=== PATIENT | male | born 1940 | race Caucasian/White ===

== ENCOUNTER 2025-07-30 09:33 | Outpatient (REF) | payer MEDICARE, SELFPAY ==
[2025-07-30 07:51] LABS: MANUAL DIFF FLAG NO
[2025-07-30 08:03] LABS: Hematocrit 31.2 % (42.0-52.0); Hemoglobin 10.6 g/dl (14.0-18.0); Imm Gran Abs Auto 0.04 X10*3/uL (0.00-0.03); Imm Gran Pct Auto 0.6 % (0.0-0.4); Lymphocytes Absolute Auto 2.1 X10*3/uL (1.2-4.9); Mean Corpuscular HGB Conc 34.0 g/dl (31.0-36.0); Mean Corpuscular Hemoglobin 31.5 pg (27.0-33.0); Mean Corpuscular Volume 92.9 fL (80.0-98.0); NRBC Abs Auto 0.000 X10*3/uL (0.0-0.012); NRBC Pct Auto 0.0 /100WBC (0.0-0.2); Platelet Count 274 X10*3/uL (160-400); Red Blood Count 3.36 X10*6/uL (4.60-5.80); White Blood Count 7.1 X10*3/uL (4.8-10.8)
[2025-07-30 08:59] LABS: Anion Gap 18 (12-20); Blood Urea Nitrogen 45 mg/dL (9-16); Calcium 9.1 mg/dL (8.4-10.2); Carbon Dioxide 26 mmol/L (22-29); Chloride 93 mmol/L (96-108); Estimated Glomerular Filt Rate 9; Potassium 4.5 mmol/L (3.3-5.1); Sodium 132 mmol/L (135-145)
== END 2025-07-30 09:34 | disposition home or self-care (01) ==
LOC: HO.MMNH3L 09:33
PROVIDERS: Visit Provider Physician Assistant Medical
DX: N18.6 End stage renal disease (principal)
CPT/HCPCS: 36415; 80048; 85025

== ENCOUNTER 2025-08-06 06:36 | Outpatient (REF) | payer MEDICARE, SELFPAY ==
[2025-08-06 06:36] LABS: MANUAL DIFF FLAG NO
--- OUTSIDE RECORDS SUMMARY | 2025-08-06 06:37 | XMS_ITS | Encounter Summary ---
Author Organization [facility], Address [address] [place] [address] Phone Care Team Providers Care Heel Seater Name Role Phone Evangelist Alicia Primary Care Provider [phone] Reason for Visit * Reason Comments Med Refill Encounter Details Date Type Department Care Team (Late st Contact Info) Description 09/25/2023 Refill [facility] [address] [place] [phone] Asa Cowart, [address] [place] [address] Social History Tobacco Use Types Packs/Day Years Used Date Smoking Tobacco: Former Cigarettes 0 Q uit: 08/16/1970 Smokeless Tobacco: Never Alcohol Use Standard Drinks/Week Comments Yes 1 (1 standard drink = 0.6 oz pure alcohol) Alcoholic Drinks/day: Occasional social drink Sex and Gender Information Value Date Recorded Sex Assigned at Not on file Legal Sex Male 4:36 PM EST Gender Identity Not on file Sexual Orientation Not on file documented as of this encounter Plan of Treatment Upcoming Encounters Date Type Department Care Team (Late st Contact Info) Description 11/08/2025 9:00 AM EDT Scheduled Only [facility], - [facility] [address] [place] [phone] documented as of this encounter Visit Diagnoses Not on filedocumented in this encounter Care Teams Heel Seater Relationship Specialty Start Date End Date Evangelist Alicia [address] [place] [address] PCP - General Internal Medicine 07/19/19 documented as of this encounter
--- OUTSIDE RECORDS SUMMARY | 2025-08-06 06:37 | XMS_ITS | Encounter Summary ---
Author Organization [facility], Address [address] [place] [address] Phone Care Team Providers Care Mark Up Designer Name Role Phone Evangelist Alicia Primary Care Provider [phone] Reason for Visit * Reason Comments Med Refill Encounter Details Date Type Department Care Team (Late st Contact Info) Description 11/18/2023 Refill [facility] [address] [place] [phone] Asa Cowart, [address] [place] [address] Social History Tobacco Use Types [...] Scheduled Only [facility], - Vascular Access Center [address] [place] [phone] documented as of this encounter Procedures Procedure Name Priority Date/Time Associated Diagnosis Comments HD KINETICS Routine 11/18/2023 POST CHEMISTRY Routine 11/18/2023 HEMATOLOGY Routine 11/18/2023 CHEMISTRY Routine 11/18/2023 [facility] RESULTS Routine 11/18/2023 documented in this encounter Results * [facility] Results (11/18/2023) nPCR_HD 0.60 [facility] eKt/V (Tattersall) 1.21 [facility] WSTDKT/V 2.3 [facility] PCR 45.73 [facility] eKt/V Gotch 1.26 [facility] spKt/V (Daugirdas II) 1.39 [facility] eNPCR 0.56 [facility] eKdrt/V 1.26 [facility] spKt/V Gotch 1.45 [facility] 11/18/2023 11/18/2023 [facility] Ordering Provider LAB BLOOD ORDERABLES Final Result [facility] Contact Performing lab Unknown, [place] * HD KINETICS (11/18/2023) Pathologist [facility] % Urea Reduction 70 65 - 80 % [facility] 11/18/2023 11/19/2023 10: 03 AM EDT Narrative Resulting Agency Comment Specimen source: Plasma Asa Cowart DO LAB BLOOD ORDERABLES Final Resu lt APS [facility] See order comments or contact performing lab Unknown, [place] * POST CHEMISTRY (11/18/2023) BUN Post Dialysis 9 6 - 19 mg/dL [facility] 11/18/2023 11/19/2023 10: 03 AM EDT Narrative [facility] - 11/19/2023 Unless otherwise specified, test(s) performed at: [facility], [address] [place], [place] [id number] FOOD AND NUTRITION TEACHER: Wes Rogers M.D. For any questions, please call customer service at FREQUENCY:OTHER Resulting Agency Comment Specimen source: Plasma [facility] BLOOD ORDERABLES Final Resu Performing Organization Address [facility] de Phone Number [facility] See order comments or contact performing lab Unknown, [place] * (ABNORMAL) HEMATOLOGY (11/18/2023) Hemoglobin 12.5(L) 14.0 - 18.0 g/dL [facility] Hemoglobin x 3 37.5(L) 42.0 - 54.0 % [facility] 11/18/2023 11/19/2023 9:3 6 AM EDT Narrative [facility] - 11/19/2023 Unless otherwise specified, test(s) performed at: [place] [id number] FOOD AND NUTRITION TEACHER: Wes Rogers M.D. For any questions, please call customer service at FREQUENCY:OTHER Resulting Agency Comment Specimen source: [facility] BLOOD ORDERABLES Final Resu Performing Organization Address [facility] de Phone Number [facility] See order comments or contact performing lab Unknown, [place] * (ABNORMAL) [facility] (11/18/2023) BUN 30(H) 6 - 19 mg/dL [facility] 11/18/2023 11/19/2023 10: 09 AM EDT Narrative [facility] - 11/19/2023 Unless otherwise specified, test(s) performed at: [facility] [address] FOOD AND NUTRITION TEACHER: Wes Rogers M.D. For any questions, please call customer service at FREQUENCY:OTHER Resulting Agency Comment Specimen source: Serum us Asa Cowart DO LAB BLOOD ORDERABLES Final Resu lt [facility]PS [facility] See order comments or contact performing lab Unknown, [place] documented in this encounter Visit Diagnoses Not on filedocumented in this encounter Care Teams Mark Up Designer Relationship Specialty Start Date End Date Evangelist Alicia [address] [place] [address] PCP - General Internal Medicine 07/19/19 documented as of this encounter
--- OUTSIDE RECORDS SUMMARY | 2025-08-06 06:37 | XMS_ITS | Encounter Summary ---
Author Organization [facility], Address [address] [place] [address] Phone Care Team Providers Care Pillowcase Folder Name Role Phone Evangelist Alicia Primary Care Provider [phone] Reason for Visit * Reason Comments Med Refill Encounter Details Date Type Department Care Team (Late st Contact Info) Description 12/22/2023 Refill [facility] [address] [place] [phone] Asa Cowart, [address] [place] [address] Social History Tobacco Use Types [...] Only [facility], - Vascular Access Center [address] [place] [phone] documented as of this encounter Visit Diagnoses Not on filedocumented in this encounter Care Teams Pillowcase Folder Relationship Specialty Start Date End Date Evangelist Alicia [address] [place] [address] PCP - General Internal Medicine 07/19/19 documented as of this encounter
--- OUTSIDE RECORDS SUMMARY | 2025-08-06 06:37 | XMS_ITS | Encounter Summary ---
Author Organization [facility], Address [address] [place] [address] Phone Care Team Providers Care Curriculum Specialist Name Role Phone Evangelist Alicia Primary Care Provider [phone] Encounter Details Date Type Department Care Team (Late st Contact Info) Description 12/25/2019 Orders Only [facility] [address] [place] [address] Warren Bobo MD Chronic kidney disease, stage 4 (severe) (HCC) Social History Tobacco Use Types Packs/Day Years Used Date Smoking Tobacco: Former Cigarettes Alcohol Use Standard Drinks/Week Comments Yes 1 (1 standard drink = 0.6 oz pur e alcohol) Sex and Gender Information Value Date Recorded Sex Assigned at Not on file Legal Sex Male 4:36 PM EST Gender Identity Not on file Sexual Orientation Not on file documented as of this encounter Plan of Treatment Upcoming Encounters Date Type Department Care Team (Late st Contact Info) Description 11/08/2025 9:00 AM EDT Scheduled Only [facility], - Vascular Access Center [address] [place] [address] documented as of this encounter Procedures Procedure Name Priority Date/Time Associated Diagnosis Comments URINE PROTEIN, 24 HOUR W/O CREATININE Routine 12/21/2019 8:15 AM EDT Chronic kidney disease, stage 4 (severe) (HCC) documented in this encounter Results * (ABNORMAL) Urine Protein, 24 hour w/o Creatinine (12/21/2019 8:15 AM EDT) Protein, Ur 204(H) (0-12) MG/DL [facility] 24 Hr Total Protein 5.28(H) (0.04-0.23 ) GM/24HR [facility] Comment: Testing performed or reported by [facility], a Service of [facility], [address] [place] [address] Sandeep Hernandez MD, Cementer Machine Urine specimen (specimen) Urine specimen obtained by clean catch procedure / Unknown 12/21/2019 8:15 AM EDT 12/21/2019 9:26 AM EDT us Warren Bobo MD LAB URINE ORDERABLES Final Res ult [facility] documented in this encounter Visit Diagnoses Diagnosis Chronic kidney disease, stage 4 (severe) (HCC) documented in this encounter Care Teams Curriculum Specialist Relationship Specialty Start Date End Date Evangelist Alicia [address] [place] [address] PCP - General Internal Medicine 07/19/19 documented as of this encounter
--- OUTSIDE RECORDS SUMMARY | 2025-08-06 06:37 | XMS_ITS | Encounter Summary ---
Author Organization [facility], Address [address] [place] [address] Phone Care Team Providers Care Wafer Cleaner Name Role Phone Evangelist Alicia Primary Care Provider [phone] Reason for Visit * Reason Comments Med Refill Encounter Details Date Type Department Care Team (Late Contact Info) Description 01/27/2021 Refill [facility] [address] [place] [phone] Warren Bobo MD Social History Tobacco Use Types Packs/Day Years [...] on file Sexual Orientation Not on file COVID-19 Exposure Response Date Recorded In the last month, have you been in contact with someone who was confirmed or suspected to have Coronavirus / COVID-19? No / Unsure 01/21/2021 11:09 AM EDT documented as of this encounter Plan of Treatment Upcoming Encounters Date Type Department Care Team (Late st Contact Info) Description 11/08/2025 9:00 AM EDT Scheduled Only [facility], - Vascular Access Center [address] [place] [address] [place] [phone] documented as of this encounter Visit Diagnoses Not on filedocumented in this encounter Care Teams Wafer Cleaner Relationship Specialty Start Date End Date Evangelist Alicia [address] [place] [address] PCP - General Internal Medicine 07/19/19 documented as of this encounter
--- OUTSIDE RECORDS SUMMARY | 2025-08-06 06:37 | XMS_ITS | Clinical Summary ---
Author Organization [place] [address] [facility] Address [address] [facility] [place] [address] Phone Care Team Providers Care End Polisher Name Role Phone Frances Whiting MD Primary Care Provider [phone] Allergies No known active allergies Medications acetaminophen (TYLENOL 8 HOUR) 650 mg 8 hr tablet Take 1 tablet (650 mg total) by mouth every 8 (eight) hours if needed. Active MULTIVITAMIN ORAL Take 1 tablet by mouth 1 (one) time each day. Active B complex-vitamin C-folic acid (NEPHRO-LAVERNE) 0.8 mg tablet Take 1 tablet by mouth 1 (one) time each day. 3 Active folic acid (FOLVITE) 1 mg tablet Take 1 tablet (1 mg total) by mouth 1 (one) time each day. 4 Active atorvastatin (LIPITOR) 40 mg tablet Take 1 tablet (40 mg total) by mouth 1 (one) time each day. 30 each 5 4 Active lanthanum (FOSRENOL) 500 mg chewable tablet Chew 2 tablets (1,000 mg total) 3 (three) times a day with meals. Active cyanocobalamin (VITAMIN B-12) 1,000 mcg tablet Take 1 tablet (1,000 mcg total) by mouth 1 (one) time each day. Active gabapentin (NEURONTIN) 300 mg capsule Take 1 capsule (300 mg total) by mouth 1 (one) time each day. Active avrmm-8r-hyi-ep a-fish oil 600-1,200 mg capsule Take 2,400 mg by mouth 1 (one) time each day. Active midodrine HCl (MIDODRINE ORAL) Take 10 mg by mouth. 4 Active methoxy peg-epoetin beta (MIRCERA INJ) Infuse 30 mcg into a venous catheter once every 2 weeks. 5 09/25/19 26 Active pantoprazole (PROTONIX) 40 mg EC tablet TAKE ONE TABLET BY MOUTH EVERY DAY BEFORE BREAKFAST DO NOT CRUSH CHEW OR SPLIT 30 tablet 5 5 Active Active Problems Problem Noted Date Diagnosed Date Lung nodules 07/03/2024 Assessment & Plan (07/03/2024 6:16 PM EST): Repeat CT chest in 1 years time to follow-up on his lung nodules. Orders: CT Chest wo Contrast; Future ESRD on dialysis 09/11/2021 Assessment & Plan (12/18/2024 1:37 PM EDT): He is currently in the care of his casting sorter for his ESRD on dialysis. 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 PSA ordered. 6 week follow up for uroflow/PVR. Hyperlipidemia 11/23/2016 Assessment & Plan (12/18/2024 1:37 PM EDT): Unclear if he is taking his atorvastatin or not. I have asked him to go home and call us back with all the medications she is taking currently. Orders: Lipid panel with reflex to direct LDL; Future Aspartate aminotransferase; Future Alanine aminotransferase; Future Sleep apnea 06/22/2016 Hypertension 06/09/2016 Assessment & Plan (12/18/2024 1:37 PM EDT): His blood pressure is okay. He was on midodrine as prescribed by nephrology. Arthritis 06/09/2016 Nephritis 06/09/2016 Immunizations Immunization Administration Dates Next Due Influenza trivalent, 0.5mL ( Fluzone High-dose) 65yo and older 05/15/2020,06/24/2019 Influenza, Unspecified 05/24/2023,05/24/2017 [employer] SARS-CoV-2 COVID-19, mRNA, LNP-S, preservative free 10/09/2020,09/18/2020 Pneumococcal conjugate 13 va lent (Prevnar 13, PCV13) 2mo and older 07/13/2016 Pneumococcal polysaccharide 23 valent (Pneumovax 23) 2yo and older 09/27/2017 Tdap Tetanus diptheria acell ular pertussis (Boostrix; Adacel) 7yo and older 07/13/2016 Zoster Live 10/06/2018 Surgical History Surgery Date Site/Laterality Comments TOTAL KNEE ARTHROPLASTY PROCEDURE: [place] ARTHRP KNE CONDYLE&PLATU MEDIAL&LAT COMPARTMENTS; COMMENT: both knees, 2012 HERNIA REPAIR PROCEDURE: HISTORICAL HERNIA REPAIR/ING; COMMENT: inguinal and hiatal hernia repair Medical History Medical History Date Comments Nephritis DX:Nephritis; CO MMENT: membranous GN since 1989 CKD (chronic kidney disease) stage 3, GFR 30-59 ml/min ([facility] V24, [facility] V28) DX:CKD (chronic kidney disea se) stage 3, GFR 30-59 ml/min ([facility]) HTN (hypertension) DX:HTN (hyper tension) Arthritis DX:Arthritis Sleep apnea 06/22/2016 DX:Sleep apnea History of bilateral knee replacement 06/23/2016 DX:History of bilateral knee replacement HLD (hyperlipidemia) 11/23/2016 DX:HLD (hyp erlipidemia) BPH (benign prostatic hyperplasia) 2017 DX:BPH (benign prostatic hyperplasia) A-V fistula ([facility] V24) 05/12/2021 DX:A-V fistula (HCC) CKD (chronic kidney disease) stage V requiring chronic dialysis ([facility] V24, [facility] V28) 09/11/2021 DX:CKD (chronic kidney disea se) stage V requiring chronic dialysis ([facility]) Lung nodules 07/03/2024 Family History Medical History Relation Name Comments Other: Other Brother 1 industrial acci dent Diabetes Brother 2 Leukemia Brother 2 No Known Problems Daughter Coronary artery disease Father Heart attack Father Alzheimer's disease Mother No Known Problems Son Relation Name Status Comments Brother 1 Brother 2 Daughter Alive Father bypass surgery, CAD Mother Son Alive Social History Tobacco Use Types Packs/Day Years Used Date Smoking Tobacco: Former Smokeless Tobacco: Never Tobacco Cessation:Counseling Given: Not Answered Alcohol Use Standard Drinks/Week Comments Yes 0 (1 standard drink = 0.6 oz pur e alcohol) Sex and Gender Information Value Date Recorded Sex Assigned at Not on file Legal Sex Male 5:12 AM EST Gender Identity Not on file Sexual Orientation Not on file Last Filed Vital Signs Vital Sign Reading Time Taken Comments Blood Pressure 117/57 12/18/2024 1:05 PM EDT aut o Pulse 70 12/18/2024 1:05 PM EDT Temperature - - Respiratory Rate - - Oxygen Saturation - - Inhaled Oxygen Concentration - - Weight 117 kg (258 lb 9.6 oz) 12/18/2024 1:05 PM EDT Height 182.9 cm (6') 12/18/2024 1:05 PM EDT Body Mass Index 35.07 12/18/2024 1:05 PM EDT Plan of Treatment Health Maintenance Due Date Last Done Comments Diabetes: Annual Foot Exam 1950 Diabetes: Annual Retina Eye Exam 1950 Medicare Annual Wellness Visit 07/25/2022 Social Influencers of Health Screening 07/25/2022 Zoster Vaccines (2 of 2) 01/24/2024 11/29/2023, 09/17 Depression Screening 08/16/2024 12/07/2023 Falls Risk Assessment 12/07/2024 12/08/2023 COVID-19 Vaccine ( season) 2025 11/29/2023, 05/17/2023, 04/30/2022, Additional history exists Diabetes: Blood Sugar Control Test (HGBA1C) 08/04/2025 06/10/2023 Hypertension/CHF/CAD Annual BMP Blood Test 04/18/2026 04/18/2025, 04/14/2025, 04/12/2025, Additional history exists DTaP,Tdap,and Td Vaccines (2 - Td or Tdap) 07/13/2026 07/13/2016 Cholesterol Screening (Lipid Panel) 12/11/2027 12/10/2022 Pneumococcal Vaccine: 50+ Years Completed 09/27/2017, 07/13/2016 Hepatitis B Vaccines Completed 10/01/2021, 07/30/2021, 07/02/2021, Additional history exists RSV Immunization Adult Patients Completed 08/18/2023 Influenza Vaccine Completed 05/11/2025, , 04/30/2023, Additional history exists HIB Vaccines Aged Out No longer eligi ble based on patient's age to complete this topic HPV Vaccines Aged Out No longer eligi ble based on patient's age to complete this topic Hepatitis A Vaccines Aged Out No long er eligible based on patient's age to complete this topic IPV Vaccines Aged Out No longer eligi ble based on patient's age to complete this topic MMR Vaccines Aged Out No longer eligi ble based on patient's age to complete this topic Meningococcal ACWY Vaccine Aged Out N o longer eligible based on patient's age to complete this topic Meningococcal B Vaccine Aged Out No l onger eligible based on patient's age to complete this topic RSV Immunization Patients Under 20 months Aged Out No longer eligible based on patient's age to complete this topic Varicella Vaccines Aged Out No longer eligible based on patient's age to complete this topic Procedures Procedure Name Priority Date/Time Associated Diagnosis Comments FALLS RISK ASSESSMENT Routine 12/08/2023 DEPRESSION SCREENING Routine 12/07/2023 HEMOGLOBIN A1C Routine 06/10/2023 ANNUAL BMP BLOOD TEST Routine 12/10/2022 LIPID PANEL Routine 12/10/2022 from Last 3 Months or Most Recently Relevant to Health Maintenance Results * Falls Risk Assessment (12/08/2023) [facility] Falls Risk Assessment abstracted [facility] Provider HEALTH MAINTENANCE Final Result * Depression Screening (12/07/2023) Pathologist [facility] Depression Screening abstracted [facility] Provider HEALTH MAINTENANCE Final Result * Hemoglobin A1c (06/10/2023) [facility] Hemoglobin A1C 0.0 % Comment:abstracted, no inter pretation Blood Venous blood specimen / Unknown [facility] Provider LAB BLOOD ORDERABLES Bianka l Result * Annual BMP Blood Test (12/10/2022) Pathologist [facility] Annual BMP Blood Test abstracted Historical Provider HEALTH MAINTENANCE Final Result * Lipid panel (12/10/2022) [facility] LDL/HDL Ratio 0 Comment:abstracted, no inter pretation Triglycerides 0 mg/dL Comment:abstracted, no inter pretation Cholesterol 0 mg/dL Comment:abstracted, no inter pretation HDL 0 mg/dL Comment:abstracted, no inter pretation LDL Cholesterol 0.0 mg/dL Comment:abstracted, no inter pretation Blood Venous blood specimen / Unknown Historical Provider LAB BLOOD ORDERABLES Bianka l Result from Last 3 Months or Most Recently Relevant to Health Maintenance Insurance MEDICARE [facility] Care Teams End Polisher Relationship Specialty Start Date End Date Frances Whiting MD [address] [place], [place] [address] [place] [address] PCP - General Internal Medicine 05/09/25
--- OUTSIDE RECORDS SUMMARY | 2025-08-06 06:37 | XMS_ITS | Encounter Summary ---
Author Organization [facility] Address [address] [place] [address] Care Team Providers Care Range Manager Name Role Phone Frances Whiting MD Primary Care Provider [phone] Encounter Details Date Type Department Care Team (Late st Contact Info) Description 01/11/2025 Lab Requisition [facility] - Main Lab [address] [place] [address] Asa Cowart MD [address] [place] [address] Hyperkalemia Social History Tobacco Use Types Packs/Day Years Used Date Smoking Tobacco: Former Smokeless Tobacco: Never Alcohol Use Standard Drinks/Week Comments Yes 0 (1 standard drink = 0.6 oz pur e alcohol) Sex and Gender Information Value Date Recorded Sex Assigned at Not on file Legal Sex Male 5:12 AM EST Gender Identity Not on file Sexual Orientation Not on file documented as of this encounter Plan of Treatment Not on file documented as of this encounter Procedures Procedure Name Priority Date/Time Associated Diagnosis Comments POTASSIUM STAT 01/11/2025 7:00 AM EDT Hyperkalemia documented in this encounter Results * Potassium (01/11/2025 7:00 AM EDT) Potassium 5.2 3.5 - 5.5 mmol/L LAB CHEMISTRY METHOD 01/11/2025 9:41 AM EDT [facility] Blood Venous blood specimen / Unknown 01/11/2025 7:00 AM EDT 01/11/2025 9:00 AM EDT us Asa Cowart MD LAB BLOOD ORDERABLES Final Re sult [facility] H[facility] LAB [address] [place] [address], documented in this encounter Visit Diagnoses Diagnosis Hyperkalemia Hyperpotassemia documented in this encounter Care Teams Range Manager Relationship Specialty Start Date End Date Frances Whiting MD [address] [place] [address] PCP - General Internal Medicine 05/09/25 documented as of this encounter
--- OUTSIDE RECORDS SUMMARY | 2025-08-06 06:37 | XMS_ITS | Encounter Summary ---
Author Organization [facility], Address [address] [place] [address] Phone Care Team Providers Care Process Control Engineer Name Role Phone Evangelist Alicia Primary Care Provider [phone] Reason for Visit * Reason Comments Med Refill Encounter Details Date Type Department Care Team (Late st Contact Info) Description 11/10/2023 Refill [facility] [address] [place] [phone] Asa Cowart, [address] [place] [address] Social History Tobacco Use Types [...] Only [facility], - Vascular Access Center [address] [place] [phone] documented as of this encounter Visit Diagnoses Not on filedocumented in this encounter Care Teams Process Control Engineer Relationship Specialty Start Date End Date Evangelist Alicia [address] [place] [phone] PCP - General Internal Medicine 07/19/19 documented as of this encounter
--- OUTSIDE RECORDS SUMMARY | 2025-08-06 06:37 | XMS_ITS | Encounter Summary ---
Author Organization [facility], Address [address] [place] [address] Phone Care Team Providers Care Police Radio Dispatcher Name Role Phone Evangelist Alicia Primary Care Provider [phone] Reason for Visit * Reason Comments Med Refill Encounter Details Date Type Department Care Team (Late st Contact Info) Description 01/18/2021 Refill [facility] [address] [place] [phone] Warren Bobo MD Social History Tobacco Use Types Packs/Day Years Used Date Smoking Tobacco: Former Cigarettes 0 Q uit: 08/16/1970 Alcohol Use Standard Drinks/Week Comments Yes 1 [...] Only [facility], - [facility] Center [address] [phone] documented as of this encounter Visit Diagnoses Not on filedocumented in this encounter Care Teams Police Radio Dispatcher Relationship Specialty Start Date End Date Ravin Evangelist [address] [place] [address] PCP - General Internal Medicine 07/19/19 documented as of this encounter
--- OUTSIDE RECORDS SUMMARY | 2025-08-06 06:37 | XMS_ITS | Encounter Summary ---
Author Organization [facility] Address [address] [address] Phone Care Team Providers Care Food Management Aide Name Role Phone Evangelist Alicia Primary Care Provider [phone] Encounter Details Date Type Department Care Team (Late st Contact Info) Description 02/19/2025 TCM in Dialysis Clinic [facility] [address] [place] [phone] Annmarie Cuba MD [address] [place] [phone] Social History Tobacco Use Types Packs/Day Years [...] on file documented as of this encounter Progress Notes * Annmarie Cuba MD - 02/19/2025 12:00 AM EDT Patient: Herbie Bruce, 1940, 84y, M Dialysis Location: [facility] Attending Acrobatic Dancer: Annmarie Cuba Service Date: 02/19/2025 Service Provider: Annmarie Cuba MD I met face to face with the patient today. INITIAL PATIENT CONTACT This face to face visit occurred within 2 business days of the patient?s discharge HOSPITALIZATION SUMMARY Patient has transitioned in the past 30 days from: Hospital. Setting patient transitioned to: Home. Admission Date: 02/13/2025 Discharge Date: 02/17/2025 Discharge diagnosis: L03.115 Cellulitis of right lower limb Discharge information reviewed: No outstanding diagnostic tests and treatments MEDICATIONS Discharge med list reviewed and reconciled - no changes. Active treatment medication orders reviewed - no changes. PHYSICAL EXAM Exam Performed. Vital Signs Reviewed. CV - Blood pressure noted. EXT - 1+ edema. AVF/AVG Positive thrill/bruit. DIALYSIS PRESCRIPTION Dry weight during admission reviewed - no change to EDW. CARE COORDINATION Post discharge follow-up appointments reviewed with the patient. Established or re-established referrals. EDUCATION Education relevant to the discharge diagnosis provided to the patient or caregiver IMPRESSION & PLAN Comments: infected hematoma after fall Signed By: Annmarie Cuba MD on 02/19/2025 4:01:11 PM documented in this encounter Plan of Treatment Upcoming Encounters Date Type Department Care Team (Late st Contact Info) Description 11/08/2025 9:00 AM EDT Scheduled Only [facility] - V[facility] Access Center [address] [place] [address] documented as of this encounter Visit Diagnoses Not on filedocumented in this encounter Care Teams Food Management Aide Relationship Specialty Start Date End Date Evangelist Alicia [address] [place] [address] PCP - General Internal Medicine 07/19/19 documented as of this encounter
--- OUTSIDE RECORDS SUMMARY | 2025-08-06 06:37 | XMS_ITS | Encounter Summary ---
Author Organization [facility], Address [address] [place] [address] Phone Care Team Providers Care Care Coordinator Name Role Phone Evangelist Alicia Primary Care Provider [phone] Reason for Visit * Reason Comments Med Refill Encounter Details Date Type Department Care Team (Late st Contact Info) Description 2024 Refill [facility] [address] [place] [phone] Asa Cowart, [address] [place] [address] Social History Tobacco Use Types [...] on file documented as of this encounter Miscellaneous Notes * Telephone Encounter - Mary Tong - 11/27/2024 12:37 PM EDT FAX TO [phone] documented in this encounter Plan of Treatment Upcoming Encounters Date Type Department Care Team (Late st Contact Info) Description 11/08/2025 9:00 AM EDT Scheduled Only [facility] - [facility] Center [address] [place] [address] [place] [phone] documented as of this encounter Visit Diagnoses Not on filedocumented in this encounter Care Teams Care Coordinator Relationship Specialty Start Date End Date Evangelist Alicia [address] [place] [address] PCP - General Internal Medicine 07/19/19 documented as of this encounter
--- OUTSIDE RECORDS SUMMARY | 2025-08-06 06:38 | XMS_ITS | Encounter Summary ---
Author Organization [facility], Address [address] [place] [address] Phone Care Team Providers Care Social Work Assistant Name Role Phone Evangelist Alicia Primary Care Provider [phone] Reason for Visit * Reason Comments Med Refill Encounter Details Date Type Department Care Team (Late st Contact Info) Description 08/11/2023 Refill [facility] [address] [place] [phone] Asa Cowart, [address] [place] [address] Social History Tobacco Use Types [...] Only [facility], - V[facility] Access Center [address] [place] [phone] documented as of this encounter Visit Diagnoses Not on filedocumented in this encounter Care Teams Social Work Assistant Relationship Specialty Start Date End Date Evangelist Alicia [address] [place] [address] PCP - General Internal Medicine 07/19/19 documented as of this encounter
--- OUTSIDE RECORDS SUMMARY | 2025-08-06 06:38 | XMS_ITS | Clinical Summary ---
Author Organization [facility] Address [address] [address] Phone Care Team Providers Care Certified Genetic Counselor Name Role Phone Evangelist Alicia Primary Care Provider [phone] Allergies No known active allergies Medications omega-3 (FISH OIL) 1000 MG capsule Take 1 capsule by mouth 1 (one) time each day Active pyridoxine (VITAMIN B-6) 100 MG tablet Vitamin B6 100 mg tablet Take by oral route. Active B complex-vitamin C-folic acid (NEPHRO-LAVERNE) 0.8 MG tablet Take 1 tablet by mouth 1 (one) time each day 3 Active midodrine (PROAMATINE) 10 MG tablet Take 10 mg by mouth in the morning and 10 mg in the evening. Active folic acid (FOLVITE) 1 MG tablet Take 1 mg by mouth 4 Active acetaminophen (TYLENOL) 325 MG tablet Take 650 mg by mouth 4 Active Cholecalciferol 25 MCG (1000 UT) chewable tablet Chew Active gabapentin (NEURONTIN) 300 MG capsule Take 1 capsule (300 mg total) by mouth every night 90 capsule 3 5 11/24/19 26 Active sevelamer carbonate (RENVELA) 800 MG tablet 1 tablet in the morning and 1 tablet at noon and 1 tablet in the evening. 5 10/18/19 26 Active cyanocobalamin (VITAMIN B-12) 1000 MCG tablet Take 1,000 mcg by mouth in the morning. Active Cinacalcet HCl (SENSIPAR PO) Take 30 mg by mouth 5 10/11/19 26 Active Vitamin E 180 MG (400 UNIT) capsule Take 180 mg by mouth 4 Active pantoprazole (PROTONIX) 40 MG EC tablet Take 40 mg by mouth 1 (one) time each day before breakfast Do not crush, chew, or split. 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 [place] [address] Ricardo Phan MD End stage renal disease; Dependence on renal dialysis 07/16/2025 Treatment [facility] [address] [place] [address] Ricardo Phan MD End stage renal disease; Dependence on renal dialysis 07/10/2025 Treatment [facility] [address] [place] [address] Ricardo Phan MD End stage renal disease; Dependence on renal dialysis 06/18/2025 Treatment [facility] [address] [place] [address] Ricardo Phan MD End stage renal disease; Dependence on renal dialysis 06/11/2025 Treatment [facility], [address] [place] [address] Ricardo Phan MD End stage renal disease; Dependence on renal dialysis from Last 3 Months Immunizations Immunization Administration Dates Next Due Influenza Split High Dose Preservative Free IM 0 05/15/2020,06/24/2019 Zoster 10/06/2018 Family History Medical History Relation Comments Coronary artery disease Father had bypa ss surgery Hypertension Father Dementia Mother Diabetes Sibling Relation Status Comments Father Mother Sibling Social History Tobacco Use Types Packs/Day Years [...] Sign Reading Time Taken Comments Blood Pressure 137/71 01/15/2025 10:07 AM EDT Pulse 70 01/15/2025 10:07 AM EDT Temperature 36.2 C (97.2 F) 01/15/2025 10:07 AM EDT Respiratory Rate 14 01/15/2025 10:07 AM EDT Oxygen Saturation 98% 01/15/2025 10:07 AM EDT Inhaled Oxygen Concentration - - Weight 113 kg (250 lb) 01/15/2025 10:07 AM EDT Height 182.9 cm (6') 01/15/2025 10:07 AM EDT Body Mass Index 33.91 01/15/2025 10:07 AM EDT Plan of Treatment Upcoming Encounters Date Type Department Care Team (Late st Contact Info) Description 11/08/2025 9:00 AM EDT Scheduled Only [facility], - Vascular Access Center [address] [place] [address] Health Maintenance Due Date Last Done Comments Influenza Vaccine (#1) 2025 3, 05/15/2020, 06/24/2019, Additional history exists Pneumococcal Vaccine: 50+ Years Completed 09/27/2017, 07/13/2016 Pneumococcal Vaccine: Peds (0 to 5 Years) and At-Risk Patients (6 to 49 Years) Discontinued 09/27/2017, 07/13/2016 Hepatitis B Vaccine Aged Out No longe r eligible based on patient's age to complete this topic Procedures Procedure Name Priority Date/Time Associated Diagnosis Comments HEMATOLOGY Routine 03/19/2025 from Last 3 Months or Most Recently Relevant to Health Maintenance Results * (ABNORMAL) HEMATOLOGY (03/19/2025) Neutrophils 58.1 40.0 - 75.0 % [facility] Lymphocytes Relative 23.6 19.0 - 48.0 % [facility] Monocytes 4.4 3.0 - 10.0 % [facility] Eosinophils Relative 10.6(H) 0.0 - 7.0 % [facility] Basophils Relative 0.5 0.0 - 1.5 % [facility] POLO 2.8 0.0 - 4.0 % [facility] WBC 8.10 4.80 - 10.80 1000/mcL [facility] RBC 4.14(L) 4.70 - 6.10 mill/mcL [facility] Hematocrit 40.7(L) 42.0 - 52.0 % [facility] MCV 98 80 - 100 fl [facility] MCH 30.4 27.0 - 31.0 pg [facility] MCHC 30.9 30.0 - 36.0 g/dL [facility] RDW 15.3(H) 11.5 - 14.5 % [facility] Hemoglobin 12.6(L) 14.0 - 18.0 g/dL [facility] Hemoglobin x 3 37.8(L) 42.0 - 54.0 % [facility] Platelets 269 130 - 400 1000/mcL [facility] 03/19/2025 03/20/2025 9:3 2 AM EDT Narrative [facility] - 03/20/2025 Unless otherwise specified, test(s) performed at: [employer] [employer], [address] [place] [address] HEATING FIXTURE TENDER: Wes Rogers M.D. For any questions, please call customer service at FREQUENCY:MONTHLY Resulting Agency Comment Specimen source: Blood us Annmarie Cuba MD LAB BLOOD ORDERABLES Final Re sult [facility] See order comments or contact performing lab Unknown, [place] from Last 3 Months or Most Recently Relevant to Health Maintenance Insurance Medicare [facility] Medicare Care Teams Certified Genetic Counselor Relationship Specialty Start Date End Date Evangelist Alicia [address] [place] [address] PCP - General Internal Medicine 07/19/19
[2025-08-06 06:39] LABS: Hematocrit 32.0 % (42.0-52.0); Hemoglobin 10.7 g/dl (14.0-18.0); Imm Gran Abs Auto 0.03 X10*3/uL (0.00-0.03); Imm Gran Pct Auto 0.4 % (0.0-0.4); Lymphocytes Absolute Auto 1.8 X10*3/uL (1.2-4.9); Mean Corpuscular HGB Conc 33.4 g/dl (31.0-36.0); Mean Corpuscular Hemoglobin 31.2 pg (27.0-33.0); Mean Corpuscular Volume 93.3 fL (80.0-98.0); NRBC Abs Auto 0.000 X10*3/uL (0.0-0.012); NRBC Pct Auto 0.0 /100WBC (0.0-0.2); Platelet Count 261 X10*3/uL (160-400); Red Blood Count 3.43 X10*6/uL (4.60-5.80); White Blood Count 7.1 X10*3/uL (4.8-10.8)
[2025-08-06 07:06] LABS: Anion Gap 14 (12-20); Blood Urea Nitrogen 27 mg/dL (9-16); Calcium 8.9 mg/dL (8.4-10.2); Carbon Dioxide 29 mmol/L (22-29); Chloride 98 mmol/L (96-108); Estimated Glomerular Filt Rate 15; Potassium 3.9 mmol/L (3.3-5.1); Sodium 137 mmol/L (135-145)
== END 2025-08-06 06:37 | disposition home or self-care (01) ==
LOC: HO.MMNH3L 06:36
PROVIDERS: Visit Provider Physician Assistant Medical
DX: N18.6 End stage renal disease (principal); D63.1 Anemia in chronic kidney disease; R56.9 Unspecified convulsions; Z99.2 Dependence on renal dialysis
CPT/HCPCS: 36415; 80048; 85025

== ENCOUNTER 2025-08-13 09:57 | Outpatient (REF) | payer MEDICARE, SELFPAY ==
[2025-08-13 08:34] LABS: Hematocrit 36.8 % (42.0-52.0); Hemoglobin 12.1 g/dl (14.0-18.0); Imm Gran Abs Auto 0.07 X10*3/uL (0.00-0.03); Imm Gran Pct Auto 1.1 % (0.0-0.4); Lymphocytes Absolute Auto 2.0 X10*3/uL (1.2-4.9); MANUAL DIFF FLAG SCAN; Mean Corpuscular HGB Conc 32.9 g/dl (31.0-36.0); Mean Corpuscular Hemoglobin 31.3 pg (27.0-33.0); Mean Corpuscular Volume 95.1 fL (80.0-98.0); NRBC Abs Auto 0.000 X10*3/uL (0.0-0.012); NRBC Pct Auto 0.0 /100WBC (0.0-0.2); Red Blood Count 3.87 X10*6/uL (4.60-5.80); White Blood Count 6.6 X10*3/uL (4.8-10.8)
[2025-08-13 08:45] LABS: Anion Gap 16 (12-20); Blood Urea Nitrogen 26 mg/dL (9-16); Calcium 9.5 mg/dL (8.4-10.2); Carbon Dioxide 25 mmol/L (22-29); Chloride 96 mmol/L (96-108); Potassium 4.6 mmol/L (3.3-5.1); Sodium 132 mmol/L (135-145)
[2025-08-13 10:32] LABS: Estimated Glomerular Filt Rate 14
--- OUTSIDE RECORDS SUMMARY | 2025-08-13 10:50 | XMS_ITS | Clinical Summary ---
Author Organization [place] [address] [address] [facility] Address [address] [facility] [place] [address] Phone Care Team Providers Care Boiler Tenders Supervisor Name Role Phone Frances Whiting MD Primary Care Provider [phone] Allergies No known active allergies Medications acetaminophen [...] mouth 1 (one) time each day. 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 A-V fistula [...] 65yo and older 05/15/2020,06/24/2019 Influenza, Unspecified 05/24/2023,05/24/2017 [employer] SARS-CoV-2 COVID-19, mRNA, LNP-S, preservative free 10/09/2020,09/18/2020 Pneumococcal conjugate 13 va lent (Prevnar 13, PCV13) 2mo and older 07/13/2016 Pneumococcal polysaccharide 23 valent (Pneumovax 23) 2yo and older 09/27/2017 Tdap Tetanus diptheria acell ular pertussis (Boostrix; Adacel) 7yo and older 07/13/2016 Zoster Live 10/06/2018 Surgical History Surgery Date Site/Laterality Comments TOTAL KNEE ARTHROPLASTY PROCEDURE: OR ARTHRP KNE CONDYLE&PLATU MEDIAL&LAT COMPARTMENTS; COMMENT: both knees, 2012 HERNIA REPAIR PROCEDURE: HISTORICAL HERNIA REPAIR/ING; COMMENT: inguinal and hiatal hernia repair Medical History Medical History Date Comments Nephritis DX:Nephritis; CO MMENT: membranous GN since 1989 CKD (chronic kidney disease) stage 3, GFR 30-59 ml/min ([facility] V24, [facility] V28) DX:CKD (chronic kidney disea se) stage 3, GFR 30-59 ml/min ([facility]) HTN (hypertension) DX:HTN (hyper tension) Arthritis DX:Arthritis Sleep apnea 06/22/2016 DX:Sleep apnea History of bilateral knee replacement 06/23/2016 DX:History of bilateral knee replacement HLD (hyperlipidemia) 11/23/2016 DX:HLD (hyp erlipidemia) BPH (benign prostatic hyperplasia) 2017 DX:BPH (benign prostatic hyperplasia) A-V fistula ([facility] V24) 05/12/2021 DX:A-V fistula (HCC) CKD (chronic kidney disease) stage V requiring chronic dialysis ([facility] V24, [facility] V28) 09/11/2021 DX:CKD (chronic kidney disea se) stage V requiring chronic dialysis ([facility]) Lung nodules 07/03/2024 Family History Medical History [...] Maintenance Results * Falls Risk Assessment (12/08/2023) [facility] Falls Risk Assessment abstracted [facility] Provider HEALTH MAINTENANCE Final Result * Depression Screening (12/07/2023) Pathologist [facility] Depression Screening abstracted [facility] Provider HEALTH MAINTENANCE Final Result * Hemoglobin A1c (06/10/2023) [facility] Hemoglobin A1C 0.0 % Comment:abstracted, no inter pretation Blood Venous blood specimen / Unknown [facility] Provider LAB BLOOD ORDERABLES Bianka l Result * Annual BMP Blood Test (12/10/2022) Pathologist [facility] Annual BMP Blood Test abstracted Historical Provider HEALTH MAINTENANCE Final Result * Lipid panel (12/10/2022) [facility] LDL/HDL Ratio 0 Comment:abstracted, no inter pretation Triglycerides 0 mg/dL Comment:abstracted, no inter pretation Cholesterol 0 mg/dL Comment:abstracted, no inter pretation HDL 0 mg/dL Comment:abstracted, no inter pretation LDL Cholesterol 0.0 mg/dL Comment:abstracted, no inter pretation Blood Venous blood specimen / Unknown Historical Provider LAB BLOOD ORDERABLES Bianka l Result from Last 3 Months or Most Recently Relevant to Health Maintenance Insurance MEDICARE [facility] Care Teams Boiler Tenders Supervisor Relationship Specialty Start Date End Date Frances Whiting MD [address] [place], [place] [address] [address] PCP - General Internal Medicine 05/09/25
--- OUTSIDE RECORDS SUMMARY | 2025-08-13 10:50 | XMS_ITS | Encounter Summary ---
Author Organization [facility], Address [address] [place] [address] Phone Care Team Providers Care Senior Dynamics Crm Developer Name Role Phone Evangelist Alicia Primary Care Provider Reason for Visit * Reason Comments Med Refill Encounter Details Date Type Department Care Team (Late Contact Info) Description 01/27/2021 Refill [facility] [address] [place] [phone] Warren Bobo MD Social History Tobacco Use [...] Only [facility], - Vascular Access Center [address] [place] [address] [place] [phone] documented as of this encounter Visit Diagnoses Not on filedocumented in this encounter Care Teams Senior Dynamics Crm Developer Relationship Specialty Start Date End Date Evangelist Alicia [address] [place] [address] PCP - General Internal Medicine 07/19/19 documented as of this encounter
--- OUTSIDE RECORDS SUMMARY | 2025-08-13 10:50 | XMS_ITS | Encounter Summary ---
Author Organization [facility] Address [address] [place] [address] Care Team Providers Care Surgeon Chief Name Role Phone Frances Whiting MD Primary Care Provider [phone] Encounter Details Date Type Department Care Team (Late st Contact Info) Description 01/11/[address] [facility] - Main Lab [address] [place] [address] Asa Cowart MD [address] [place] [address] Hyperkalemia Social History Tobacco Use [...] LAB CHEMISTRY METHOD 01/11/2025 9:41 AM EDT [facility] Blood Venous blood specimen / Unknown 01/11/2025 7:00 AM EDT 01/11/2025 9:00 AM EDT us Asa Cowart MD LAB BLOOD ORDERABLES Final Re sult [facility] [address] [place] [address], documented in this encounter Visit Diagnoses Diagnosis Hyperkalemia Hyperpotassemia documented in this encounter Care Teams Surgeon Chief Relationship Specialty Start Date End Date Frances Whiting MD [address] [place] [address] PCP - General Internal Medicine 05/09/25 documented as of this encounter
--- OUTSIDE RECORDS SUMMARY | 2025-08-13 10:50 | XMS_ITS | Encounter Summary ---
Author Organization [facility], Address [address] [place] [address] Phone Care Team Providers Care Belt Splicer Name Role Phone Evangelist Alicia Primary Care Provider [phone] Reason for Visit * Reason Comments Med Refill Encounter Details Date Type Department Care Team (Late st Contact Info) Description 08/11/2023 Refill [facility] [address] [place] [phone] Asa Cowart, [address] [place] [address] Social History Tobacco Use Types [...] Only [facility], - Vascular Access Center [address] [place] [phone] documented as of this encounter Visit Diagnoses Not on filedocumented in this encounter Care Teams Belt Splicer Relationship Specialty Start Date End Date Evangelist Alicia [address] [place] [address] PCP - General Internal Medicine 07/19/19 documented as of this encounter
--- OUTSIDE RECORDS SUMMARY | 2025-08-13 10:50 | XMS_ITS | Encounter Summary ---
Author Organization [facility], Address [address] [place] [address] Phone Care Team Providers Care Acoustic Warfare Analyst Name Role Phone Evangelist Alicia Primary Care Provider [phone] Reason for Visit * Reason Comments Med Refill Encounter Details Date Type Department Care Team (Late st Contact Info) Description 01/18/2021 Refill [facility] [address] [place] [phone] Warren Bobo MD Social History Tobacco Use [...] Only [facility], - Vascular Access Center [address] [place] [phone] documented as of this encounter Visit Diagnoses Not on filedocumented in this encounter Care Teams Acoustic Warfare Analyst Relationship Specialty Start Date End Date Ravin Evangelist [address] [place] [address] PCP - General Internal Medicine 07/19/19 documented as of this encounter
--- OUTSIDE RECORDS SUMMARY | 2025-08-13 10:50 | XMS_ITS | Encounter Summary ---
Author Organization [facility], Address [address] [place] [address] Phone Care Team Providers Care Gas Pumping Station Operator Name Role Phone Evangelist Alicia Primary Care Provider [phone] Encounter Details Date Type Department Care Team (Late st Contact Info) Description 12/25/2019 Orders Only [facility] [address] [place] [address] Warren Bobo MD Chronic kidney disease, stage [...] Only [facility], - Vascular Access Center [address] [place] [address] documented as of this encounter Procedures Procedure Name Priority Date/Time Associated Diagnosis Comments URINE PROTEIN, 24 HOUR W/O CREATININE Routine 12/21/2019 8:15 AM EDT Chronic kidney disease, stage 4 (severe) (HCC) documented in this encounter Results * (ABNORMAL) Urine Protein, 24 hour w/o Creatinine (12/21/2019 8:15 AM EDT) Protein, Ur 204(H) (0-12) MG/DL [facility] 24 Hr Total Protein 5.28(H) (0.04-0.23 ) GM/24HR [facility] Comment: Testing performed or reported by [facility], a Service of [facility], [address] [place] [address] Sandeep Hernandez MD, Cash Management Clerk Urine specimen (specimen) Urine specimen obtained by clean catch procedure / Unknown 12/21/2019 8:15 AM EDT 12/21/2019 9:26 AM EDT us Warren Bobo MD LAB URINE ORDERABLES Final Res ult [facility] documented in this encounter Visit Diagnoses Diagnosis Chronic kidney disease, stage 4 (severe) (HCC) documented in this encounter Care Teams Gas Pumping Station Operator Relationship Specialty Start Date End Date Evangelist Alicia [address] [place] [address] PCP - General Internal Medicine 07/19/19 documented as of this encounter
--- OUTSIDE RECORDS SUMMARY | 2025-08-13 10:51 | XMS_ITS | Encounter Summary ---
Author Organization [facility], Address [address] [place] [address] Phone Care Team Providers Care Principal Process Engineer Name Role Phone Evangelist Alicia Primary Care Provider [phone] Reason for Visit * Reason Comments Med Refill Encounter Details Date Type Department Care Team (Late st Contact Info) Description 09/25/2023 Refill [facility] [address] [place] [phone] Asa Cowart, [address] [place] [address] Social History Tobacco Use Types [...] Only [facility], - Vascular Access Center [address] [place] [phone] documented as of this encounter Visit Diagnoses Not on filedocumented in this encounter Care Teams Principal Process Engineer Relationship Specialty Start Date End Date Evangelist Alicia [address] [place] [address] PCP - General Internal Medicine 07/19/19 documented as of this encounter
--- OUTSIDE RECORDS SUMMARY | 2025-08-13 10:51 | XMS_ITS | Clinical Summary ---
Author Organization [facility] Address [address] [address] Phone Care Team Providers Care Senior Procurement Manager Name Role Phone Evangelist Alicia Primary Care Provider [phone] Allergies No known active allergies Medications omega-3 [...] Treatment [facility] [place] [address] Ricardo Phan MD End stage renal disease; Dependence on renal dialysis 07/16/2025 Treatment [facility] [address] [place] [address] Ricardo Phan MD End stage renal disease; Dependence on renal dialysis 07/10/2025 Treatment [facility] [address] [place] [address] Ricardo Phan MD End stage renal disease; Dependence on renal dialysis 06/18/2025 Treatment [facility] [address] [place] [address] Ricardo Phan MD End stage renal disease; Dependence on renal dialysis 06/11/2025 Treatment [facility], [address] [place] [address] Ricardo Phan MD End stage renal disease; [...] Only [facility], - V[facility] Access Center [address] [place] [address] Health Maintenance Due Date Last Done Comments [...] 03/20/2025 Unless otherwise specified, test(s) performed at: [facility], [address] [place] [address] ESTATE PLANNER: Wes Rogers M.D. For any questions, please call customer service at FREQUENCY:MONTHLY Resulting Agency Comment Specimen source: Blood us Annmarie Cuba MD LAB BLOOD ORDERABLES Final Re sult [facility] See order comments or contact performing lab Unknown, [place] from Last 3 Months or Most Recently Relevant to Health Maintenance Insurance Medicare [facility] Medicare Care Teams Senior Procurement Manager Relationship Specialty Start Date End Date Evangelist Alicia [address] [place] [phone] PCP - General Internal Medicine 07/19/19
--- OUTSIDE RECORDS SUMMARY | 2025-08-13 10:51 | XMS_ITS | Encounter Summary ---
Author Organization [facility], Address [address] [place] [address] Phone Care Team Providers Care Set Up Person Name Role Phone Evangelist Alicia Primary Care Provider Reason for Visit * Reason Comments Med Refill Encounter Details Date Type Department Care Team (Late st Contact Info) Description 11/10/2023 Refill [facility] [address] [place] [phone] Asa Cowart, [address] [place] [address] Social History Tobacco Use Types [...] Only [facility], - V[facility] Center [address] [place] [phone] documented as of this encounter Visit Diagnoses Not on filedocumented in this encounter Care Teams Set Up Person Relationship Specialty Start Date End Date Evangelist Alicia [address] [place] [phone] PCP - General Internal Medicine 07/19/19 documented as of this encounter
--- OUTSIDE RECORDS SUMMARY | 2025-08-13 10:51 | XMS_ITS | Encounter Summary ---
Author Organization [facility], Address [address] [place] [address] Phone Care Team Providers Care Wrecker Driver Name Role Phone Evangelist Alicia Primary Care Provider [phone] Reason for Visit * Reason Comments Med Refill Encounter Details Date Type Department Care Team (Late st Contact Info) Description 12/22/2023 Refill [facility] [address] [place] [phone] Asa Cowart, [address] [place] [address] Social History Tobacco Use Types [...] Only [facility], - [facility] Center [address] [place] [phone] documented as of this encounter Visit Diagnoses Not on filedocumented in this encounter Care Teams Wrecker Driver Relationship Specialty Start Date End Date Evangelist Alicia [address] [place] [address] PCP - General Internal Medicine 07/19/19 documented as of this encounter
--- OUTSIDE RECORDS SUMMARY | 2025-08-13 10:51 | XMS_ITS | Encounter Summary ---
Author Organization [facility] Address [address] [address] Phone Care Team Providers Care Online Advertising Analyst Name Role Phone Evangelist Alicia Primary Care Provider [phone] Encounter Details Date Type Department Care Team (Late st Contact Info) Description 02/19/2025 TCM in Dialysis Clinic [facility] [address] [place] [phone] Annmarie Cuba MD [address] [place] [phone] Social History Tobacco Use Types Packs/Day [...] Herbie Bruce, 1940, 84y, M Dialysis Location: [facility] Attending Memorial Designer: Annmarie Cuba Service Date: 02/19/2025 Service Provider: [...] Only [facility] - V[facility] Access Center [address] [place] [address] documented as of this encounter Visit Diagnoses Not on filedocumented in this encounter Care Teams Online Advertising Analyst Relationship Specialty Start Date End Date Evangelist Alicia [address] [place] [address] PCP - General Internal Medicine 07/19/19 documented as of this encounter
--- OUTSIDE RECORDS SUMMARY | 2025-08-13 10:51 | XMS_ITS | Encounter Summary ---
Author Organization [facility], Address [address] [place] [address] Phone Care Team Providers Care Diamond Wheel Edger Name Role Phone Evangelist Alicia Primary Care Provider [phone] Reason for Visit * Reason Comments Med Refill Encounter Details Date Type Department Care Team (Late st Contact Info) Description 2024 Refill [facility] [address] [place] [phone] Asa Cowart, [address] [place] [address] Social History Tobacco Use Types [...] - 11/27/2024 12:37 PM EDT FAX TO [phone] documented in this encounter Plan of Treatment Upcoming Encounters Date Type Department Care Team (Late st Contact Info) Description 11/08/2025 9:00 AM EDT Scheduled Only [facility] - [facility] [address] [place] [address] [place] [phone] documented as of this encounter Visit Diagnoses Not on filedocumented in this encounter Care Teams Diamond Wheel Edger Relationship Specialty Start Date End Date Evangelist Alicia [address] [place] [address] PCP - General Internal Medicine 07/19/19 documented as of this encounter
--- OUTSIDE RECORDS SUMMARY | 2025-08-13 10:51 | XMS_ITS | Encounter Summary ---
Author Organization [facility], Address [address] [place] [address] Phone Care Team Providers Care Thermocouple Tester Name Role Phone Evangelist Alicia Primary Care Provider [phone] Reason for Visit * Reason Comments Med Refill Encounter Details Date Type Department Care Team (Late st Contact Info) Description 11/18/2023 Refill [facility] [address] [place] [phone] Asa Cowart, [address] [place] [address] Social History Tobacco Use Types [...] Scheduled Only [facility], - Vascular Access Center [address] [place] [phone] documented as of this encounter Procedures Procedure Name Priority Date/Time Associated Diagnosis Comments HD KINETICS Routine 11/18/2023 POST CHEMISTRY Routine 11/18/2023 HEMATOLOGY Routine 11/18/2023 CHEMISTRY Routine 11/18/2023 [facility] LAB RESULTS Routine 11/18/2023 documented in this encounter Results * [facility] Results (11/18/2023) nPCR_HD 0.60 [facility] eKt/V (Tattersall) 1.21 [facility] WSTDKT/V 2.3 [facility] PCR 45.73 [facility] eKt/V Gotch 1.26 [facility] Center spKt/V (Daugirdas II) 1.39 [facility] eNPCR 0.56 [facility] eKdrt/V 1.26 [facility] spKt/V Gotch 1.45 [facility] 11/18/2023 11/18/2023 [facility] [place] LAB BLOOD ORDERABLES Final Result [facility] Contact Performing lab Unknown, [place] * HD KINETICS (11/18/2023) Pathologist [facility] % Urea Reduction 70 65 - 80 [...] 11/19/2023 Unless otherwise specified, test(s) performed at: [email or web address], [address] [place], [place] [id number] EYEDOTTER: Wes Rogers M.D. For any questions, please call customer service at FREQUENCY:OTHER Resulting Agency Comment Specimen source: Plasma [facility] BLOOD ORDERABLES Final Resu Performing Organization Address [facility] de Phone Number [facility] Orders See order comments or contact performing lab Unknown, [place] * (ABNORMAL) HEMATOLOGY (11/18/2023) Hemoglobin 12.5(L) 14.0 - 18.0 g/dL [facility] Hemoglobin x 3 37.5(L) 42.0 - 54.0 % [facility] 11/18/2023 11/19/2023 9:3 6 AM EDT Narrative [facility] - 11/19/2023 Unless otherwise specified, test(s) performed at: [email or web address] [id number] EYEDOTTER: Wes Rogers M.D. For any questions, please call customer service at FREQUENCY:OTHER Resulting Agency Comment Specimen source: [facility] BLOOD ORDERABLES Final Resu Performing Organization Address [facility] de Phone Number [facility] See order comments or contact performing lab Unknown, [place] * (ABNORMAL) [facility] (11/18/2023) BUN 30(H) 6 - 19 mg/dL [facility] 11/18/2023 11/19/2023 10: 09 AM EDT Narrative [facility] - 11/19/2023 Unless otherwise specified, test(s) performed at: [email or web address] [address] EYEDOTTER: Wes Rogers M.D. For any questions, please call customer service at FREQUENCY:OTHER Resulting Agency Comment Specimen source: Serum us Asa Cowart DO LAB BLOOD ORDERABLES Final Resu lt [facility] See order comments or contact performing lab Unknown, [place] documented in this encounter Visit Diagnoses Not on filedocumented in this encounter Care Teams Thermocouple Tester Relationship Specialty Start Date End Date Evangelist Alicia [address] [place] [address] PCP - General Internal Medicine 07/19/19 documented as of this encounter
== END 2025-08-13 09:58 ==
LOC: HO.MMNH3L 09:57
PROVIDERS: Visit Provider Physician Assistant Medical
DX: N18.6 End stage renal disease (principal)
CPT/HCPCS: 36415; 80048; 85025